=== PATIENT | female | born 1950 | race Caucasian/White ===

== ENCOUNTER 2018-11-29 14:45 | Emergency (ER) | payer MEDICARE ==
--- NOTE | 2018-11-29 14:57 | ER Document Report ---
ED Medical Screen (RME) - General Chief Complaint: Finger Injury Stated Complaint: FISH HOOK IN RIGHT 4TH FINGER Time Seen by Provider: 11/29/18 14:53 Mode of Arrival: Ambulatory Information source: Patient Notes: Patient is a 68-year-old female with a fishhook in her right fourth digit. She states this occurred just prior to arrival. She reports her tetanus shot is up-to-date. Exam: [place] noted in right fourth digit on the dorsal surface. I have greeted and performed a rapid initial assessment of this patient. A comprehensive ED assessment and evaluation of the patient, analysis of test results and completion of the medical decision making process will be conducted by additional ED providers. Dictation of this chart was performed using voice recognition software; therefore, there may be some unintended grammatical errors. - Related Data Allergies/Adverse Reactions: Sulfa (Sulfonamide Antibiotics) Allergy (Verified 11/29/18 14:46) Physical Exam - Vital signs Vitals: Temp Pulse Resp BP Pulse Ox 98.8 F 66 16 180/79 H 97 11/29/18 14:49 11/29/18 14:49 11/29/18 14:49 11/29/18 14:49 11/29/18 14:49 Course - Vital Signs Vital signs: Temp Pulse Resp BP Pulse Ox 98.8 F 66 16 180/79 H 97 11/29/18 14:49 11/29/18 14:49 11/29/18 14:49 11/29/18 14:49 11/29/18 14:49
[2018-11-29] MEDS ORDERED: LIDOCAINE 1% INJ-PF (10 MG/ML) 30 ML SDV INJ ONE (15:15)
--- NOTE | 2018-11-29 15:30 | RADIOLOGY REPORT (SQ) ---
EXAM DESCRIPTION: FINGER RIGHT COMPLETED DATE/TIME: 11/29/2018 3:16 pm REASON FOR STUDY: fishhook in 4th digit COMPARISON: None. NUMBER OF VIEWS: Three views. TECHNIQUE: AP, lateral, and oblique images acquired of the right 4th finger. LIMITATIONS: None. FINDINGS: MINERALIZATION: Normal. BONES: No acute fracture or dislocation. No worrisome bone lesions. SOFT TISSUES: Fish hook in the dorsal right 4th finger soft tissues just proximal to the nail bed. N o bony involvement. OTHER: No other significant finding. IMPRESSION: Fish hook in the dorsal right 4th finger soft tissues just proximal to the nail bed. No bony involvement. COMMENT: SITE OF TRAUMA/COMPLAINT MARKED/STAMP COMPLETED: Yes TECHNICAL DOCUMENTATION: JOB ID: [id number] [employer]- All Rights Reserved Reading location - IP/workstation name: [email or web address]
--- NOTE | 2018-11-29 15:41 | ER Document Report ---
ED Hand/Wrist Injury - General Chief Complaint: Finger Injury Stated Complaint: FISH HOOK IN RIGHT 4TH FINGER Time Seen by Provider: 11/29/18 14:53 Mode of Arrival: Ambulatory Information source: Patient Notes: Patient is a 68-year-old female comes emergency room complaining of having a fishhook in her finger. Patient states he was fishing for "bluefish". Got 1 and it shook the hook and as it did the hook got caught in her right ring finger. She states she attempted to push through but it got too painful. - HPI Injury to: Ring finger - Knee Onset: Just prior to arrival Where: Outdoors, Public place Timing: Constant Quality of pain: [place], Stabbing Severity: Moderate Pain Level: 3 - Related Data Allergies/Adverse Reactions: Sulfa (Sulfonamide Antibiotics) Allergy (Verified 11/29/18 14:46) Past Medical History - General Information source: Patient - Social History Smoking Status: Former Smoker Cigarette use (# per day): No Chew tobacco use (# tins/day): No Smoking Education Provided: No Frequency of alcohol use: Social Drug Abuse: None Lives with: Family Family History: Reviewed & Not Pertinent Patient has suicidal ideation: No Patient has homicidal ideation: No - Past Medical History Cardiac Medical History: Reports: Hx Heart Attack Renal/ Medical History: Denies: Hx Peritoneal Dialysis Past Surgical History: Reports: Hx Cardiac Surgery - 2 stents, Hx Hysterectomy Review of Systems - Review of Systems Constitutional: No symptoms reported EENT: No symptoms reported Cardiovascular: No symptoms reported Respiratory: No symptoms reported Gastrointestinal: No symptoms reported Genitourinary: No symptoms reported Female Genitourinary: No symptoms reported Musculoskeletal: See HPI, Joint pain Skin: See HPI Hematologic/Lymphatic: No symptoms reported Neurological/Psychological: No symptoms reported -: Yes All other systems reviewed and negative Physical Exam - Vital signs Vitals: Temp Pulse Resp BP Pulse Ox 98.8 F 66 16 180/79 H 97 11/29/18 14:49 11/29/18 14:49 11/29/18 14:49 11/29/18 14:49 11/29/18 14:49 Interpretation: Hypertensive - Notes Notes: PHYSICAL EXAMINATION: GENERAL: Well-appearing, well-nourished and in no acute distress. HEAD: Atraumatic, normocephalic. LUNGS: Breath sounds clear to auscultation bilaterally and equal. No wheezes rales or rhonchi. HEART: Regular rate and rhythm without murmurs Musculoskeletal: Examination patient's area of concern is her right ring finger dorsal aspect just above the DIP. Patient has embedded in her finger a fishhook. Patient states that it is a new hook however it appears somewhat silvano. As stated goes in just above the DIP does not appear to penetrate the joint space just underneath the skin. It appears that the tip is embedded just below the nail on the right hand. There is some dried blood around the entrance point. There is no exit at this time. NEUROLOGICAL: Normal speech, normal gait. Normal sensory, motor exams SKIN: Warm, see musculoskeletal above Course - Re-evaluation Re-evalutation: 11/29/18 15:44 Patient states she is up-to-date on her tetanus shot. Procedure note Area was cleaned with Betadine I used a #27 needle with 1% lidocaine and inject ed approximately 1/4 to 1/2 mL of lidocaine directly at the junction of the area where the needle entered the skin. I waited approximately 3 minutes to let the area anesthetized. I attempted to use an 18-gauge cath line and placed over top the rashaun and back out the needle but was unsuccessful x2 attempts so I used the forceps and then pushed forward on the needle having the rashaun come through the base of the nail and then snipped it off with a pair of wire cutters. On and back it out. There was no additional damage to the area. I then had patient soak her hand in Hibiclens and water. She is on Plavix and aspirin so she bled a fair amount which I felt was good to cleanse the area and we applied a nonstick dressing with antibiotic ointment. I have informed patient that even though I do not believe this went into the joint space that she needs to pay close attention to the care of this area if for any reason that joint should start to swell become painful or the area starts to ooze she needs to return to ER. I am placing her on doxycycline for coverage. - Vital Signs Vital signs: Temp Pulse Resp BP Pulse Ox 98.8 F 66 16 180/79 H 97 11/29/18 14:49 11/29/18 14:49 11/29/18 14:49 11/29/18 14:49 11/29/18 14:49 Discharge - Discharge Clinical Impression: [place] injury to finger Qualifiers: Encounter type: initial encounter Laterality: right Qualified Code(s): S69.91XA - Unspecified injury of right wrist, hand and finger(s), initial encounter Condition: Stable Disposition: HOME, SELF-CARE Instructions: Foreign Body ([facility]) Additional Instructions: Highly recommend soaking 2 or 3 more times in the next couple of days the fishhook itself did not appear to penetrate the joint space however it was just above it and it is important that she pay close attention to the healing of this finger. If for any reason that finger should start to swell or you are having difficult time moving it or becomes excessively painful need to return to ER once for recheck. I highly advised taking all of your antibiotics because it was located near joint space. If you have any reaction the antibiotics please do not hesitate to return to ER for reevaluation and a different antibiotic and/or see your primary care provider to continue the treatment. An infection in the joint space can become serious amount of time so it is shortened that you pay close attention. I have also written for Diflucan pill which will help reduce the possibility of a yeast infection. Then reapply in a Band-Aid to the area. Prescriptions: Doxycycline Hyclate 100 mg PO BID #20 capsule Fluconazole [Diflucan] 150 mg PO ONCE PRN #1 tablet PRN Reason: Forms: Elevated Blood Pressure
[2018-11-29 16:19] VITALS: BP 160/79
== END 2018-11-29 16:15 | disposition home or self-care (01) ==
LOC: ER 14:45
PROC: 0JCJ0ZZ Extirpation of Matter from Right Hand Subcutaneous Tissue and Fascia, Open Approach (ICD-10-PCS; principal; 2018-11-29)
DX: S60.454A Superficial foreign body of right ring finger, initial encounter (principal); X58.XXXA Exposure to other specified factors, initial encounter; Z87.891 Personal history of nicotine dependence; Z79.899 Other long term (current) drug therapy; Z79.02 Long term (current) use of antithrombotics/antiplatelets
CPT/HCPCS: 99283